=== PATIENT | male | born 1965 | race Hispanic/Latino ===

== ENCOUNTER 2021-11-07 05:15 | Emergency (ER) | payer OTHER ==
[2021-11-07] MEDS ORDERED: Acetaminophen 325 MG TAB ONE (05:53)
== END 2021-11-07 06:12 | disposition home or self-care (01) ==
LOC: CSHERS 05:15
DX: S60.467A Insect bite (nonvenomous) of left little finger, initial encounter (principal); I10 Essential (primary) hypertension; Z79.899 Other long term (current) drug therapy; W57.XXXA Bitten or stung by nonvenomous insect and other nonvenomous arthropods, initial encounter
CPT/HCPCS: 93005